=== PATIENT | male | born 1965 ===

== ENCOUNTER 2023-10-30 15:31 | Emergency (ER) | payer MEDICAID, SELFPAY ==
[2023-10-30 15:54] VITALS: BP 140/88; PULSE 79; RESP 16; TEMP 36.6; O2SAT 97; BMI 22.1
--- NOTE | 2023-10-30 15:54 | ED_ITS ---
HPI - Skin/Abscess/Foreign Bdy General Chief complaint: Skin/Abscess/Foreign Body Stated complaint: rash on back Time Seen by Provider: 10/30/23 16:02 Source: patient Mode of arrival: ambulatory Limitations: no limitations History of Present Illness ED Provider: Pau Lopez PA-C HPI narrative: 58 yo male presents to the ER for evaluation of an itchy rash on his back for the last 1 month. It has been getting worse. He states it started small and got bigger and now involves his entire back. No new soaps, detergents, lotions, or creams. No fevers, no new medications. No joint swelling. He has been taking an allergy medicine and using calamine lotion without improvement. He reports a few smaller lesions on his legs as well. MD complaint: rash Onset (ago): month(s) (1) Location: back Severity: moderate Quality: pruritic Pain Consistency: constant Relieving factors: none Exacerbating factors: none Context: none Associated symptoms: denies other symptoms Treatments prior to arrival: OTC topical medication Related Data Previous Rx's ?Medication ?Instructions ?Recorded diphenhydramine HCl 25 mg tablet 50 mg (2 x 25 mg) PO TID PRN 10/30/23 (Benadryl Allergy) itching #20 tabs prednisone 50 mg tablet 50 mg PO DAILY #5 tabs 10/30/23 Allergies Allergy/AdvReac Type Severity Reaction Status Date / Time No Known Allergies Allergy Verified 10/30/23 15:56 Review of Systems Review of Systems: Yes all other systems are reviewed and are negative Physical Exam Vital Signs: Vital Signs: Last Vital Signs Temp 98 F 10/30/23 15:54 Pulse 79 10/30/23 15:54 Resp 16 10/30/23 15:54 BP 140/88 H 10/30/23 15:54 Pulse Ox 97 10/30/23 15:54 O2 Del Method Room Air 10/30/23 15:54 BMI result Body Mass Index 22.1 Appearance: Alert. Oriented X3. No acute distress. HEENT: normal inspection. no facial swelling. normal oral mucosa CVS: Normal heart rate and rhythm. Pulses normal. Respiratory: No respiratory distress. Lungs CTAB Skin: Skin warm and dry. Normal skin color. Normal skin turgor. on the back there is a large 18 in x12 in flat erythematous oval area with dry skin, warm without induration, scaling or openings. well demarcated. few small lesions, 1-2 cm on the RLE and LLE as well. Extremities: no peripheral edema, no joint swelling Neuro: Oriented X 3. nonfocal Medical Decision Making Medical Decision Making [facility] Narrative: 58 yo male presenting to the ER for evaluation of itchy, red rash on his back x1 month with new smaller lesions on his legs as well. no recent tick bites, rash is not classic of ECM. no joint swelling. unclear etiology. will plan to start short course of prednisone and refer to dermatology for further workup. also advise benadryl for itching. patient stable for d/c home with outpatient follow up. Differential Diagnosis Differential Diagnoses: The differential diagnosis associated with the presentation includes allergic reaction, erythema migrans, dermatitis, psoriasis, cellulitis Tests considered The following testing was considered but not selected: considered basic labs and tick borne pathogen panel Prescription Management I considered prescription management with: Antibiotic and Other (prednisone) Critical Care Time Critical Care Time Critical Care Time: No Discharge Plan Discharge Clinical Impression: Dermatitis Patient Disposition: Home, Self-Care Instructions: Dermatitis (ED) Additional Instructions: take the prescribed prednisone for the next 5 days take the prescribed benadryl every 6-8 hours as needed for itching recommend following up with dermatology for further evaluation call - [facility] in [place] [phone] If you develop new or worsening symptoms call 911 or come back to the ER for further evaluation. Prescriptions: New prednisone 50 mg tablet 50 mg PO DAILY Qty: 5 0RF diphenhydramine HCl [Benadryl Allergy] 25 mg tablet 50 mg PO TID PRN (Reason: itching) Qty: 20 0RF Print Language: Samoan
== END 2023-10-30 16:17 | disposition home or self-care (01) ==
PROVIDERS: Emergency Provider Emergency Medicine
DX: L30.9 Dermatitis, unspecified (principal); R21 Rash and other nonspecific skin eruption
CPT/HCPCS: 99281; 99283

== ENCOUNTER 2023-12-05 08:01 | Emergency (ER) | payer SELFPAY ==
[2023-12-05 08:25] VITALS: BP 154/89; PULSE 74; RESP 16; TEMP 36.3; O2SAT 100; BMI 22.2
--- NOTE | 2023-12-05 08:47 | ED_ITS ---
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 It is in the middle of his back between his shoulder blades, worse with movement. Recently seen and treated here for a dermatitis, treated with benadryl and steroids with resolution of the rash. No further itching. No fever, chills, body aches, joint pains. No known tick bites, he thinks he was bitten by a mosquito a month ago that caused the itchy rash that is now resolved. No chest pain, SOB, abdominal pain. He has taken tylenol with minimal relief. 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 MD elicited complaint: back pain Pertinent past history: prior back pain Onset (ago): week(s) (2) Timing: intermittent Severity: moderate Similar Symptoms Previously: Yes Quality: aching and spasming Location: right upper back and left lower back Radiation: none Exacerbating factors: movement Relieving factors: none Context: unknown Associated symptoms: denies other symptoms Treatments prior to arrival: acetaminophen Work related injury: No Related Data Previous Rx's ?Medication ?Instructions ?Recorded diphenhydramine HCl 25 mg tablet 50 mg (2 x 25 mg) PO TID PRN 10/30/23 (Benadryl Allergy) itching #20 tabs prednisone 50 mg tablet 50 mg PO DAILY #5 tabs 10/30/23 cyclobenzaprine 10 mg tablet 10 mg PO TID PRN muscle spasm #10 12/05/23 tabs ibuprofen 600 mg tablet 600 mg PO Q8H PRN pain #14 tabs 12/05/23 lidocaine 5 % topical patch 1 patch topical DAILY #15 ea 12/05/23 Allergies Allergy/AdvReac Type Severity Reaction Status Date / Time No Known Allergies Allergy Verified 12/05/23 08:28 Review of Systems Review of Systems: Yes all other systems are reviewed and are negative PMFSH Social History Social History Advance Directives: No Advance Directives Information Provided: Yes Physical Exam Vital Signs: Vital Signs: Last Vital Signs Temp 98.2 F 12/05/23 09:21 Pulse 71 12/05/23 09:21 Resp 16 12/05/23 09:21 BP 123/83 12/05/23 09:21 Pulse Ox 97 12/05/23 09:21 O2 Del Method Room Air 12/05/23 09:21 BMI result Body Mass Index 22.2 Appearance: Alert. Oriented X3. No acute distress. HEENT: normal external inspection Neck: Normal inspection. Neck supple. no midline tenderness. normal ROM CVS: Normal heart rate and rhythm. Pulses normal. Respiratory: No respiratory distress. Breath sounds normal. Abdomen: Soft and nontender. +BS x4 Back: normal insepction, no rashes. soft tissue tenderness of the paraspinous muscles throughout the upper thoracic spine Skin: Skin warm and dry. Normal skin color. Normal skin turgor. No rashes. Extremities: No lower extremity edema. No joint swelling. Neuro/psych: Oriented X 3. grossly normal, nonfocal. steady gait Medications Administered Discontinued Medications Generic Name Dose Route Start Last Admin Trade Name Dayronq PRN Reason Stop Dose Admin Acetaminophen 975 mg 12/05/23 09:02 12/05/23 09:16 Acetaminophen 325 Mg Tablet PO 12/05/23 09:03 975 mg ONCE ONE Administration Ibuprofen 600 mg 12/05/23 09:02 12/05/23 09:17 Ibuprofen 600 Mg Tablet PO 12/05/23 09:03 600 mg ONCE ONE Administration Lidocaine 1 patch 12/05/23 09:02 12/05/23 09:17 Lidocaine 4 % Patch Adh..Patch TRANSDERMA 12/05/23 09:03 1 patch ONCE ONE Administration Protocol Medical Decision Making Medical Decision Making MDM Narrative: 58 yo male presents to the ER for evaluation of upper back pain x2 weeks. works as a [employer] MANAGER. recent dermatitis to the back 1 month ago that resolved with prednisone and benadryl. Back today shows no rashes. He has soft tissue tenderness in paraspinous muscle tenderness in his upper thoracic area. No midline tenderness. He has normal range of motion of his neck. No headache, joint pains, fevers. Low clinical suspicion for tick-borne illness however panels were sent today to make sure. No need for empiric doxycycline at this point. His pain is most likely muscular in nature. Prescribe NSAIDs, muscle relaxers, Lidoderm patches. Patient does not have a PCP, referrals for local PCPs were given to the patient so he can call and start making some appointments. Stable for discharge home Differential Diagnosis Differential Diagnoses: The differential diagnosis associated with the presentation includes Muscular upper back pain due to strain and spasm, low suspicion for intrathoracic disease or tick-borne illness External Record Review External record reviewed: Outpatient record Prescription Management I considered prescription management with: Pain Medication Critical Care Time Critical Care Time Critical Care Time: No Discharge Plan Discharge Clinical Impression: Upper back pain Patient Disposition: Home, Self-Care Instructions: Back Pain (ED) Additional Instructions: Your pain is most likely due to muscle strain and spasm. Rest. No strenuous activity. No bending, lifting or twisting. Use ice several times per day for 20 minutes at a time for the next 48 hours and then change to heat. Take medications as prescribed to help with pain and discomfort. Recommend getting a primary care doctor If you develop new or worsening symptoms call 911 or come back to the ER for further evaluation. Prescriptions: New cyclobenzaprine 10 mg tablet 10 mg PO TID PRN (Reason: muscle spasm) Qty: 10 0RF ibuprofen 600 mg tablet 600 mg PO Q8H PRN (Reason: pain) Qty: 14 0RF lidocaine 5 % adhesive patch,medicated 1 patch topical DAILY Qty: 15 0RF Rx Instructions: leave on most painful area for up to 12 hrs No Action prednisone 50 mg tablet 50 mg PO DAILY Qty: 5 0RF diphenhydramine HCl [Benadryl Allergy] 25 mg tablet 50 mg PO TID PRN (Reason: itching) Qty: 20 0RF Referrals: [facility] [Provider Group] [facility] [Provider Group] [facility] Interventions: ED Discharge Assessment Last Done: 12/05/23 09:21 Discharge Date/Time: 12/05/23 09:22 Print Language: Turkish
[2023-12-05] MEDS: Acetaminophen 325 MG TABLET 975 MG PO (09:16)
[2023-12-05] MEDS: Lidocaine 4 % Patch ADH..PATCH 1 PATCH TRANSDERMA (09:17)
[2023-12-05] MEDS: Ibuprofen 600 MG TABLET PO (09:17)
[2023-12-05 09:21] VITALS: BP 123/83; PULSE 71; RESP 16; TEMP 36.8; O2SAT 97
[2023-12-09 04:14] LABS: A. Phagocytphilium DNA,RT-PCR NOT DETECTED (NOT DETECTED); Babesia Microti DNA, RT-PCR NOT DETECTED (NOT DETECTED); Borrelia Miyamotoi,DNA RT-PCR NOT DETECTED (NOT DETECTED); E.Chaffeensis DNA RT-PCR NOT DETECTED (NOT DETECTED); Lyme(Borrelia ssp)DNA RT-PCR NOT DETECTED (NOT DETECTED)
[2023-12-10 13:38] LABS: Lyme Blot 7.43 index
[2023-12-11 10:19] LABS: Lyme Abs Screen POSITIVE
[2023-12-11 14:44] LABS: 18 KD (IgG) Band NON-REACTIVE; 23 KD (IgG) Band REACTIVE; 23 KD (IgM) Band REACTIVE; 28 KD (IgG) Band NON-REACTIVE; 30 KD (IgG) Band NON-REACTIVE; 39 KD (IgM) Band REACTIVE; 39KD (IgG) Band REACTIVE; 41 KD (IgM) Band REACTIVE; 41KD (IgG) Band REACTIVE; 45 KD (IgG) Band NON-REACTIVE; 58 KD (IgG) Band REACTIVE; 66 KD (IgG) Band NON-REACTIVE; 93 KD (IgG) Band NON-REACTIVE; Lyme IgG Blot Interp NEGATIVE (NEGATIVE); Lyme IgM Blot Interp POSITIVE (NEGATIVE)
== END 2023-12-05 09:22 | disposition home or self-care (01) ==
PROVIDERS: Emergency Provider Emergency Medicine
DX: A69.20 Lyme disease, unspecified (principal); M54.6 Pain in thoracic spine
CPT/HCPCS: 36415; 86617; 86618; 87468; 87469; 87478; 87484; 87798; 99283